=== PATIENT | male | born 1995 | race Caucasian/White ===

== ENCOUNTER 2018-10-05 13:21 | Emergency (ER) | payer BC, OTHER ==
[~2018-10-05] VITALS: Ht 185.4 cm; Wt 120.5 kg
[2018-10-05 13:21] VITALS: BP 141/90
[2018-10-05] MEDS ORDERED: NORC1TAB4 PO (13:25)
[2018-10-05] MEDS ORDERED: AUGM875T28 PO (13:25)
[2018-10-05] MEDS ORDERED: PERCOCET 5MG/325MG TAB PO ONE (14:00)
[2018-10-05] MEDS ORDERED: BUPIVACAINE HCL 0.5% 10 ML VIAL SC ONE (14:00)
[2018-10-05] MEDS ORDERED: PERC5TAB12 PO ×2 (14:04→14:05)
== END 2018-10-05 14:21 | disposition home or self-care (01) ==
LOC: M ED 13:21
DX: K02.9 Dental caries, unspecified (principal); H92.09 Otalgia, unspecified ear; Z88.1 Allergy status to other antibiotic agents; Z79.2 Long term (current) use of antibiotics

== ENCOUNTER 2019-01-16 07:57 | Emergency (ER) | payer OTHER, BC ==
[~2019-01-16] VITALS: Ht 185.4 cm; Wt 125.9 kg
[~2019-01-16 07:57] MED LIST: AUGM875T28 PO; NORC1TAB7 PO; PERC5TAB12 PO
[2019-01-16] MEDS ORDERED: ADACEL/BOOSTRIX VACCINE (DIPHTH/PERTUSS/ACELL/TETANUS)0.5ML SYR (90715) IM ONE (09:15)
[2019-01-16] MEDS ORDERED: NEOSPORIN OINT 0.9 GM PKT (FLOOR STOCK) TOP ONE (09:15)
[2019-01-16] MEDS ORDERED: AUGM875T28 PO (09:33)
[2019-01-16 09:38] VITALS: BP 126/82
== END 2019-01-16 09:43 | disposition home or self-care (01) ==
LOC: M ED 07:57
DX: S61.452A Open bite of left hand, initial encounter (principal); W54.0XXA Bitten by dog, initial encounter; Y92.89 Other specified places as the place of occurrence of the external cause; Y99.0 Civilian activity done for income or pay; J45.909 Unspecified asthma, uncomplicated; Z88.1 Allergy status to other antibiotic agents

== ENCOUNTER 2019-04-21 12:26 | Emergency (ER) | payer BC, OTHER ==
[~2019-04-21] VITALS: Ht 185.4 cm; Wt 119.1 kg
[2019-04-21] MEDS ORDERED: LIDOCAINE W/EPINEPHRINE 1% 20ML VIAL SC ONE (15:15)
[2019-04-21 15:28] VITALS: BP 122/78
[2019-04-21] MEDS ORDERED: POLYSPORIN TOPICAL OINTMENT 15GM TOP ONE (15:30)
== END 2019-04-21 15:35 | disposition home or self-care (01) ==
LOC: M ED 12:26
DX: S00.05XA Superficial foreign body of scalp, initial encounter (principal); W26.8XXA Contact with other sharp object(s), not elsewhere classified, initial encounter; Y92.018 Other place in single-family (private) house as the place of occurrence of the external cause; J45.909 Unspecified asthma, uncomplicated; Z98.84 Bariatric surgery status; Z88.8 Allergy status to other drugs, medicaments and biological substances

== ENCOUNTER → 2020-11-22 | Outpatient (CLI) | payer BC, OTHER ==
[2020-11-22 10:55] LABS: HEMATOCRIT 46.4 % (42.0-52.0); MEAN CORPUSCULAR HGB CONC 32.3 g/dl (32.0-36.5); MEAN CORPUSCULAR VOLUME 92.8 fl (80.0-96.0); PLATELET COUNT, AUTOMATED 266 10^3/uL (150-450); WHITE BLOOD COUNT 4.8 10^3/uL (4.0-10.0)
[2020-11-22 10:58] LABS: HEMATOCRIT 46.4 % (42.0-52.0)
[2020-11-22 11:35] LABS: ALBUMIN 3.9 GM/DL (3.2-5.2); ALT/SGPT 17 U/L (12-78); BILIRUBIN,TOTAL 0.5 MG/DL (0.2-1.0); BLOOD UREA NITROGEN 15 MG/DL (7-18); CALCIUM LEVEL 9.4 MG/DL (8.5-10.1); CARBON DIOXIDE LEVEL 28 MEQ/L (21-32); CHLORIDE LEVEL 108 MEQ/L (98-107); CHOLESTEROL LEVEL 156 MG/DL (<200); CHOLESTEROL RISK RATIO 4.216 (<5); CREATININE FOR GFR 0.96 MG/DL (0.70-1.30); GLOMERULAR FILTRATION RATE > 60.0 (>60); GLUCOSE, FASTING 81 MG/DL (70-100); HDL CHOLESTEROL 37 MG/DL (>40); IRON (FE) 159 UG/DL (65-175); LDL CHOLESTEROL 98 MG/DL (<100); NON-HDL-C 119 MG/DL; PERCENT SATURATION 37.8 % (19.7-50.0); POTASSIUM SERUM 4.8 MEQ/L (3.5-5.1); SODIUM LEVEL 141 MEQ/L (136-145); TOTAL IRON BINDING CAPACITY 421 UG/DL (250-450); TOTAL PROTEIN 6.8 GM/DL (6.4-8.2); TRIGLYCERIDES LEVEL 104 MG/DL (<150)
[2020-11-22 11:37] LABS: TOTAL 25(OH) VITAMIN D 22.5 NG/ML (30.0-100.0); VITAMIN B12 LEVEL 362 PG/ML (247-911)
== END ==
LOC: M WUC 08:32
PROVIDERS: ATTEND Family Medicine
DX: Z00.00 Encounter for general adult medical examination without abnormal findings (principal); E66.09 Other obesity due to excess calories; Z68.37 Body mass index [BMI] 37.0-37.9, adult; Z13.220 Encounter for screening for lipoid disorders; Z98.84 Bariatric surgery status; Z83.3 Family history of diabetes mellitus

== ENCOUNTER 2021-04-11 12:13 | Emergency (ER) | payer OTHER ==
[~2021-04-11] VITALS: Ht 185.4 cm; Wt 132.5 kg
[2021-04-11] MEDS ORDERED: NEOSPORIN TOP OINT 15GM TOP ONE (14:05)
[2021-04-11] MEDS ORDERED: BOOSTRIX/ADACEL VACCINE (DIPHTH/PERTUSS/ACELL/TETANUS) 0.5ML SYR IM ONE (14:05)
[2021-04-11 14:15] VITALS: BP 136/79
== END 2021-04-11 14:19 | disposition home or self-care (01) ==
LOC: M ED 12:13
DX: S80.12XA Contusion of left lower leg, initial encounter (principal); S80.812A Abrasion, left lower leg, initial encounter; W01.198A Fall on same level from slipping, tripping and stumbling with subsequent striking against other object, initial encounter; Y92.89 Other specified places as the place of occurrence of the external cause; Z98.84 Bariatric surgery status; Z88.1 Allergy status to other antibiotic agents

== ENCOUNTER → 2021-04-13 | Outpatient (REF) | payer OTHER | LOC: M WUC 15:18 | PROVIDERS: ATTEND Physician Assistant | DX: S81.802A Unspecified open wound, left lower leg, initial encounter (principal); X58.XXXA Exposure to other specified factors, initial encounter; Y92.9 Unspecified place or not applicable ==

== ENCOUNTER → 2022-10-17 | Outpatient (REF) | payer OTHER ==
[2022-10-18 10:28] LABS: BASO % 0.5 % (0.0-1.0); EOS % 0.5 % (0.0-3.0); HEMATOCRIT 46.2 % (42.0-52.0); LYMPH # 1.8 10^3/uL (1.5-5.0); LYMPH % 33.1 % (24.0-44.0); MEAN CORPUSCULAR HEMOGLOBIN 30.9 pg (27.0-33.0); MEAN CORPUSCULAR HGB CONC 32.5 g/dl (32.0-36.5); MEAN CORPUSCULAR VOLUME 95.3 fl (80.0-96.0); MONO # 0.3 10^3/uL (0.0-0.8); MONO % 5.8 % (2.0-8.0); NEUTROPHILS # 3.3 10^3/uL (1.5-8.5); NEUTROPHILS % 59.9 % (36.0-66.0); PLATELET COUNT, AUTOMATED 245 10^3/uL (150-450); RED BLOOD COUNT 4.85 10^6/uL (4.30-6.10); WHITE BLOOD COUNT 5.5 10^3/uL (4.0-10.0)
[2022-10-18 10:48] LABS: LIPASE 39 U/L (12-53)
[2022-10-18 10:49] LABS: AMYLASE 51 U/L (30-118)
[2022-10-18 10:50] LABS: ALKALINE PHOSPHATASE 72 U/L (46-116); ALT/SGPT 10 U/L (7.0-40); AST/SGOT 23 U/L (<34); BILIRUBIN,TOTAL 0.5 MG/DL (0.3-1.2); BLOOD UREA NITROGEN 10 MG/DL (9-23); CALCIUM LEVEL 9.5 MG/DL (8.5-10.1); CARBON DIOXIDE LEVEL 30 MMOL/L (20-31); CHLORIDE LEVEL 107 MMOL/L (98-107); CREATININE FOR GFR 0.93 MG/DL (0.70-1.30); GLOMERULAR FILTRATION RATE > 60.0 (>60); GLUCOSE, FASTING 91 MG/DL (60-100); POTASSIUM SERUM 4.6 MMOL/L (3.5-5.1); SODIUM LEVEL 141 MMOL/L (136-145); TOTAL PROTEIN 6.5 G/DL (5.7-8.2)
== END ==
LOC: M SFHCCLAY 08:35
PROVIDERS: ATTEND Physician Assistant
DX: R10.10 Upper abdominal pain, unspecified (principal)

== ENCOUNTER → 2022-10-19 | Outpatient (CLI) | payer OTHER | LOC: M RAD 06:57 | PROVIDERS: ATTEND Physician Assistant | DX: R10.10 Upper abdominal pain, unspecified (principal) ==

== ENCOUNTER → 2022-12-20 | Outpatient (REF) | payer OTHER ==
[2022-12-20 17:35] LABS: BASO % 0.6 % (0.0-1.0); EOS % 0.8 % (0.0-3.0); HEMOGLOBIN 15.2 g/dl (13.5-17.5); LYMPH # 1.6 10^3/uL (1.5-5.0); LYMPH % 34.5 % (24.0-44.0); MEAN CORPUSCULAR HGB CONC 32.3 g/dl (32.0-36.5); MEAN CORPUSCULAR VOLUME 95.7 fl (80.0-96.0); MONO # 0.4 10^3/uL (0.0-0.8); MONO % 7.6 % (2.0-8.0); NEUTROPHILS # 2.7 10^3/uL (1.5-8.5); NEUTROPHILS % 56.5 % (36.0-66.0); PLATELET COUNT, AUTOMATED 273 10^3/uL (150-450); RED BLOOD COUNT 4.91 10^6/uL (4.30-6.10); WHITE BLOOD COUNT 4.8 10^3/uL (4.0-10.0)
[2022-12-20 17:47] LABS: PERCENT SATURATION 24.6 % (19.7-50.0)
[2022-12-20 17:52] LABS: CHOLESTEROL RISK RATIO 3.38 (<5); FERRITIN 9.9 NG/ML (10.5-307.3); HDL CHOLESTEROL 40.5 MG/DL (>40); LDL CHOLESTEROL 85.3 MG/DL (<100); NON-HDL-C 96.5 MG/DL
[2022-12-20 17:53] LABS: FOLATE 12.59 NG/ML (>5.4); TOTAL 25(OH) VITAMIN D 24.9 NG/ML (20.0-100.0)
== END ==
LOC: M SFHCCLAY 09:02
PROVIDERS: ATTEND Nurse Practitioner Family
DX: Z98.84 Bariatric surgery status (principal)

== ENCOUNTER 2023-06-05 21:07 | Emergency (ER) | payer OTHER ==
[~2023-06-05] VITALS: Ht 188 cm; Wt 117.3 kg
[2023-06-05 21:08] VITALS: BP 167/95; TEMP 97.4; O2SAT 100
[2023-06-05 21:41] LABS: BASO % 0.2 % (0.0-1.0); EOS % 0.3 % (0.0-3.0); HEMATOCRIT 44.4 % (42.0-52.0); HEMOGLOBIN 14.6 g/dl (13.5-17.5); LYMPH % 15.5 % (24.0-44.0); MEAN CORPUSCULAR HEMOGLOBIN 30.7 pg (27.0-33.0); MEAN CORPUSCULAR HGB CONC 32.9 g/dl (32.0-36.5); MEAN CORPUSCULAR VOLUME 93.3 fl (80.0-96.0); MONO # 0.7 10^3/uL (0.0-0.8); MONO % 5.1 % (2.0-8.0); NEUTROPHILS % 78.6 % (36.0-66.0); PLATELET COUNT, AUTOMATED 252 10^3/uL (150-450); RED BLOOD COUNT 4.76 10^6/uL (4.30-6.10); WHITE BLOOD COUNT 12.7 10^3/uL (4.0-10.0)
[2023-06-05 22:03] LABS: BLOOD UREA NITROGEN 13 MG/DL (9-23); CALCIUM LEVEL 8.8 MG/DL (8.5-10.1); CARBON DIOXIDE LEVEL 30 MMOL/L (20-31); CHLORIDE LEVEL 106 MMOL/L (98-107); CREATININE FOR GFR 0.85 MG/DL (0.70-1.30); GLOMERULAR FILTRATION RATE > 60.0 (>60); GLUCOSE, FASTING 106 MG/DL (60-100); POTASSIUM SERUM 4.1 MMOL/L (3.5-5.1); SODIUM LEVEL 142 MMOL/L (136-145)
== END 2023-06-06 00:28 | disposition left against medical advice (07) ==
LOC: M ED 21:07
DX: Z53.21 Procedure and treatment not carried out due to patient leaving prior to being seen by health care provider (principal)

== ENCOUNTER → 2023-06-06 | Outpatient (REF) | payer OTHER ==
[2023-06-06 18:40] LABS: BASO % 0.4 % (0.0-1.0); EOS % 0.2 % (0.0-3.0); HEMATOCRIT 46.7 % (42.0-52.0); HEMOGLOBIN 15.5 g/dl (13.5-17.5); LYMPH # 1.3 10^3/uL (1.5-5.0); MEAN CORPUSCULAR HEMOGLOBIN 30.9 pg (27.0-33.0); MEAN CORPUSCULAR HGB CONC 33.2 g/dl (32.0-36.5); MONO # 0.3 10^3/uL (0.0-0.8); MONO % 5.3 % (2.0-8.0); NEUTROPHILS % 70.9 % (36.0-66.0); PLATELET COUNT, AUTOMATED 290 10^3/uL (150-450); RED BLOOD COUNT 5.02 10^6/uL (4.30-6.10); WHITE BLOOD COUNT 5.7 10^3/uL (4.0-10.0)
[2023-06-06 19:09] LABS: THYROID STIMULATING HORMONE 0.777 uIU/ML (0.55-4.78)
[2023-06-06 19:12] LABS: FOLATE 18.19 NG/ML (>5.4); VITAMIN B12 LEVEL 255 PG/ML (211-911)
[2023-06-06 19:28] LABS: ALBUMIN 4.1 G/DL (3.2-5.2); ALKALINE PHOSPHATASE 77 U/L (46-116); ALT/SGPT 13 U/L (7.0-40); AST/SGOT 14 U/L (<34); BILIRUBIN,TOTAL 0.7 MG/DL (0.3-1.2); BLOOD UREA NITROGEN 9 MG/DL (9-23); CALCIUM LEVEL 9.4 MG/DL (8.5-10.1); CARBON DIOXIDE LEVEL 27 MMOL/L (20-31); CHLORIDE LEVEL 105 MMOL/L (98-107); CREATININE FOR GFR 0.85 MG/DL (0.70-1.30); GLOMERULAR FILTRATION RATE > 60.0 (>60); GLUCOSE, FASTING 87 MG/DL (60-100); POTASSIUM SERUM 4.8 MMOL/L (3.5-5.1); SODIUM LEVEL 141 MMOL/L (136-145)
== END ==
LOC: M SFHCCLAY 09:48
PROVIDERS: ATTEND Physician Assistant
DX: R20.2 Paresthesia of skin (principal); R42 Dizziness and giddiness

== ENCOUNTER → 2023-06-15 | Outpatient (REF) | payer OTHER ==
[2023-06-16 00:10] LABS: GC DNA AMPLIFICATION NEGATIVE (NEGATIVE)
== END ==
LOC: M LAB REF 21:53
PROVIDERS: ATTEND Physician Assistant
DX: R30.0 Dysuria (principal)

== ENCOUNTER → 2023-07-09 | Outpatient (CLI) | payer OTHER | LOC: M WHC 11:12 | PROVIDERS: ATTEND Nurse Practitioner Family | DX: N50.812 Left testicular pain (principal); N43.3 Hydrocele, unspecified ==

== ENCOUNTER 2023-10-19 12:37 | Emergency (ER) | payer OTHER ==
[~2023-10-19] VITALS: Ht 185.4 cm; Wt 119.5 kg
[2023-10-19 15:55] VITALS: BP 139/77; TEMP 98; O2SAT 100
== END 2023-10-19 16:42 | disposition home or self-care (01) ==
LOC: M ED 12:37
DX: S20.20XA Contusion of thorax, unspecified, initial encounter (principal); S80.01XA Contusion of right knee, initial encounter; S60.512A Abrasion of left hand, initial encounter; V49.40XA Driver injured in collision with unspecified motor vehicles in traffic accident, initial encounter; Y92.410 Unspecified street and highway as the place of occurrence of the external cause; Y93.9 Activity, unspecified; Y99.8 Other external cause status; J45.909 Unspecified asthma, uncomplicated; Z88.8 Allergy status to other drugs, medicaments and biological substances

== ENCOUNTER → 2024-02-01 | Outpatient (CLI) | payer BC, OTHER | LOC: M WUC 09:52 | PROVIDERS: ATTEND Physician Assistant | DX: R13.12 Dysphagia, oropharyngeal phase (principal) ==

== ENCOUNTER → 2024-02-26 | Outpatient (REF) | payer OTHER ==
[2024-02-26 17:39] LABS: ALKALINE PHOSPHATASE 78 U/L (46-116); ALT/SGPT 10 U/L (7.0-40); AST/SGOT 21 U/L (<34); BILIRUBIN,TOTAL 0.7 MG/DL (0.3-1.2); BLOOD UREA NITROGEN 8 MG/DL (9-23); CARBON DIOXIDE LEVEL 29 MMOL/L (20-31); CHLORIDE LEVEL 106 MMOL/L (98-107); CREATININE FOR GFR 0.89 MG/DL (0.70-1.30); GLOMERULAR FILTRATION RATE > 60.0 (>60); GLUCOSE, FASTING 90 MG/DL (60-100); POTASSIUM SERUM 4.4 MMOL/L (3.5-5.1); SODIUM LEVEL 142 MMOL/L (136-145); TOTAL PROTEIN 6.6 G/DL (5.7-8.2)
[2024-02-26 17:43] LABS: THYROID STIMULATING HORMONE 1.249 uIU/ML (0.55-4.78)
[2024-02-26 17:58] LABS: BASO % 0.4 % (0.0-1.0); EOS # 0.1 10^3/uL (0.0-0.5); EOS % 1.4 % (0.0-3.0); LYMPH # 1.7 10^3/uL (1.5-5.0); LYMPH % 35.2 % (24.0-44.0); MEAN CORPUSCULAR HEMOGLOBIN 31.1 pg (27.0-33.0); MEAN CORPUSCULAR HGB CONC 33.3 g/dl (32.0-36.5); MEAN CORPUSCULAR VOLUME 93.2 fl (80.0-96.0); MONO # 0.4 10^3/uL (0.0-0.8); MONO % 8.7 % (2.0-8.0); NEUTROPHILS # 2.6 10^3/uL (1.5-8.5); NEUTROPHILS % 54.3 % (36.0-66.0); PLATELET COUNT, AUTOMATED 270 10^3/uL (150-450); RED BLOOD COUNT 4.83 10^6/uL (4.30-6.10); WHITE BLOOD COUNT 4.8 10^3/uL (4.0-10.0)
== END ==
LOC: M SFHCCLAY 10:00
PROVIDERS: ATTEND Nurse Practitioner Family
DX: E04.1 Nontoxic single thyroid nodule (principal); R13.10 Dysphagia, unspecified

== ENCOUNTER → 2024-04-10 | Outpatient (REF) | payer OTHER ==
[2024-04-10 12:11] LABS: ALBUMIN 3.8 G/DL (3.2-5.2); ALKALINE PHOSPHATASE 76 U/L (46-116); ALT/SGPT 9 U/L (7.0-40); AST/SGOT 11 U/L (<34); BILIRUBIN,TOTAL 0.4 MG/DL (0.3-1.2); BLOOD UREA NITROGEN 8 MG/DL (9-23); CALCIUM LEVEL 9.8 MG/DL (8.5-10.1); CARBON DIOXIDE LEVEL 30 MMOL/L (20-31); CHLORIDE LEVEL 109 MMOL/L (98-107); GLOMERULAR FILTRATION RATE > 60.0 (>60); GLUCOSE, FASTING 88 MG/DL (60-100); POTASSIUM SERUM 4.5 MMOL/L (3.5-5.1); SODIUM LEVEL 143 MMOL/L (136-145); TOTAL PROTEIN 6.5 G/DL (5.7-8.2)
== END ==
LOC: M SFHCCLAY 08:35
PROVIDERS: ATTEND Nurse Practitioner Family
DX: E04.1 Nontoxic single thyroid nodule (principal)

== ENCOUNTER → 2024-04-10 | Outpatient (CLI) | payer OTHER ==
[~2024-04-10] MED LIST changes: +ISOVUE-370 76% 100ML VIAL As Ordered ONE
== END ==
LOC: M RAD 14:42
PROVIDERS: ATTEND Nurse Practitioner Family
DX: E04.1 Nontoxic single thyroid nodule (principal); R13.10 Dysphagia, unspecified
CPT/HCPCS: 70491; Q9967

== ENCOUNTER → 2025-06-04 | Outpatient (REF) | payer OTHER ==
[~2025-06-04] MED LIST changes: -ISOVUE-370 76% 100ML VIAL As Ordered ONE
[2025-06-04 12:47] LABS: ALT/SGPT 16 U/L (7.0-40); AST/SGOT 25 U/L (<34); CALCIUM LEVEL 9.9 MG/DL (8.5-10.1); CARBON DIOXIDE LEVEL 29 MMOL/L (20-31); CHLORIDE LEVEL 104 MMOL/L (98-107); CHOLESTEROL LEVEL 164 MG/DL (<200); CHOLESTEROL RISK RATIO 3.29 (<5); CREATININE FOR GFR 0.88 MG/DL (0.70-1.30); GLOMERULAR FILTRATION RATE > 90.0 (>60); LDL CHOLESTEROL 92.2 MG/DL (<100); NON-HDL-C 114.2 MG/DL; POTASSIUM SERUM 4.7 MMOL/L (3.5-5.1); SODIUM LEVEL 142 MMOL/L (136-145); TRIGLYCERIDES LEVEL 110 MG/DL (<150)
[2025-06-04 13:08] LABS: ESTIMATED AVERAGE GLUCOSE 105.0 MG/DL (60-110)
== END ==
LOC: M SFHCCLAY 08:26
PROVIDERS: ATTEND Nurse Practitioner Family
DX: Z00.00 Encounter for general adult medical examination without abnormal findings (principal); M62.838 Other muscle spasm; J30.9 Allergic rhinitis, unspecified; K21.9 Gastro-esophageal reflux disease without esophagitis; Z83.3 Family history of diabetes mellitus